=== PATIENT | female | born 1990 | race Caucasian/White ===

== ENCOUNTER 2017-07-05 10:26 | Emergency (ER) | payer OTHER ==
[~2017-07-05] VITALS: Ht 162.6 cm; Wt 134.7 kg
[~2017-07-05 10:26] MED LIST: FLA500 PO; LAC PO; LEVOFLOXACIN750 M1 PO; METFORMIN HCL500 MG PO
[2017-07-05 10:43] VITALS: Ht 162.6 cm; Wt 134.7 kg
[2017-07-05 11:58] LABS: CALCIUM 9.4 mg/dL (8.5-10.1); CARBON DIOXIDE 26.6 mmol/L (21-32); CHLORIDE SERUM 97 mmol/L (98-107); CREATININE SERUM 0.9 mg/dL (0.6-1.0); GFR1 > 60 mL/min; GLUCOSE SERUM 353 mg/dL (74-106); POTASSIUM SERUM 3.7 mmol/L (3.5-5.1); SODIUM SERUM 134 mmol/L (136-145)
[2017-07-05 12:59] VITALS: BP 132/93
== END 2017-07-05 12:59 | disposition home or self-care (01) ==
LOC: ED 10:26
PROVIDERS: Emergency Medicine
DX: N72 Inflammatory disease of cervix uteri (principal); E11.65 Type 2 diabetes mellitus with hyperglycemia
CPT/HCPCS: 82962; 87491; 87591; J0696; J1815

== ENCOUNTER 2018-06-16 17:13 | Emergency (ER) | payer OTHER ==
[~2018-06-16] VITALS: Ht 162.6 cm; Wt 137.0 kg
[2018-06-16 17:23] VITALS: Ht 162.6 cm; Wt 137.0 kg
[2018-06-16 18:33] LABS: BASOPHIL % 0.3 % (0-2)
[2018-06-16 18:34] LABS: PLATELET COUNT 532 x10^3mcL (130-400); RED CELL DISTRIBUTION WIDTH 15.8 % (11.5-14.5)
[2018-06-16 18:37] LABS: CALCIUM 9.4 mg/dL (8.5-10.1); CARBON DIOXIDE 28.9 mmol/L (21-32); CHLORIDE SERUM 103 mmol/L (98-107); CREATININE SERUM 0.8 mg/dL (0.6-1.0); GFR1 > 60 mL/min; GLUCOSE SERUM 132 mg/dL (74-106); POTASSIUM SERUM 3.5 mmol/L (3.5-5.1); SODIUM SERUM 142 mmol/L (136-145)
[2018-06-16 18:41] LABS: ALBUMIN 3.7 g/dL (3.4-5.0); ALKALINE PHOSPHATASE 117 U/L (46-116); ALT/SGPT 32 U/L (14-59); AST/SGOT 16 U/L (15-37); BILIRUBIN TOTAL 0.14 mg/dL (0.20-1.00); TOTAL PROTEIN, SERUM 8.1 g/dL (6.4-8.2)
[2018-06-16 19:21] VITALS: BP 134/93
== END 2018-06-16 19:21 | disposition home or self-care (01) ==
LOC: ED 17:13
PROVIDERS: Emergency Medicine
DX: K52.9 Noninfective gastroenteritis and colitis, unspecified (principal); R42 Dizziness and giddiness; E11.9 Type 2 diabetes mellitus without complications
CPT/HCPCS: 36415

== ENCOUNTER 2018-07-31 23:07 | Emergency (ER) | payer OTHER ==
[~2018-07-31] VITALS: Ht 162.6 cm; Wt 138.8 kg
[2018-07-31 23:17] VITALS: Ht 162.6 cm; Wt 138.8 kg
[2018-08-01 00:55] VITALS: BP 124/80
== END 2018-08-01 00:55 | disposition home or self-care (01) ==
LOC: ED 23:07
DX: B37.3 Candidiasis of vulva and vagina (principal)